=== PATIENT | male | born 1995 | race Caucasian/White ===

== ENCOUNTER 2016-12-04 11:27 | Emergency (ER) | payer OTHER ==
[~2016-12-04] VITALS: Ht 172.7 cm; Wt 86.2 kg
[2016-12-04 11:29] VITALS: BP 123/81
[2016-12-04] MEDS ORDERED: AMOX875T PO (11:53)
[2016-12-04] MEDS ORDERED: IBUP-1060 PO (11:53)
--- NOTE | 2016-12-04 12:13 | PHYS DOC ---
Past Medical History Past Medical History: No Pertinent History Past Surgical History: No Surgical History Alcohol Use: Occasionally Drug Use: None Adult General Chief Complaint Chief Complaint: EARACHE/EAR PAIN HPI HPI Patient is a 21 year old male who presents with 3 days of R ear pain, painful R neck lymph nodes. No fevers, no sore throat, no dental pain. Has not attempted any symptom controlling medication. Review of Systems Review of Systems Constitutional: Denies fever or chills [] Eyes: Denies change in visual acuity, redness, or eye pain [] HENT: Denies nasal congestion or sore throat [] Respiratory: Denies cough or shortness of breath [] Cardiovascular: denies chest pain GI: Denies abdominal pain, nausea, vomiting, bloody stools or diarrhea [] : Denies dysuria or hematuria [] Musculoskeletal: Denies back pain or joint pain [] Integument: Denies rash or skin lesions [] Neurologic: Denies headache, focal weakness or sensory changes [] Allergies Allergies Allergies Coded Allergies Type Severity Reaction Last Updated Verified No Known Drug Allergies 04/14/16 No Physical Exam Physical Exam Constitutional: Well developed, well nourished, no acute distress, non-toxic appearance. [] HENT: Normocephalic, atraumatic, bilateral external ears normal, oropharynx moist, no oral exudates, nose normal. no trismus, R tm dulled with streaking and surrounding erythema, no mastoid tenderness. Eyes: PERRLA, EOMI, conjunctiva normal, no discharge. [] Neck: Normal range of motion, no tenderness, supple, no stridor. [] Cardiovascular:Heart rate regular rhythm, no murmur [] Lungs & Thorax: Bilateral breath sounds clear to auscultation, no wheeze, crackles or rhonchi Extremities: No tenderness, no cyanosis, no clubbing, ROM intact, no edema. [] Neurologic: Alert and oriented X 3, normal motor function, normal sensory function, no focal deficits noted. [] Psychologic: Affect normal, judgement normal, mood normal. [] Current Patient Data Vital Signs Vital Signs Date Time Temp Pulse Resp B/P (MAP) Pulse Ox O2 Delivery O2 Flow Rate FiO2 12/04/16 11:29 97.7 94 18 100 Room Air 97.7 EKG EKG [] Radiology/Procedures Radiology/Procedures [] Course & Med Decision Making Course & Med Decision Making Pertinent Labs and Imaging studies reviewed. (See chart for details) will treat with amoxicillin 875mg bid x 10 days, ibuprofen, f/u with Dr. Tor Ozuna Disclaimer Laith Disclaimer This electronic medical record was generated, in whole or in part, using a voice recognition dictation system. Departure Departure Impression: Primary Impression: Otitis media Disposition: HOME, SELF-CARE Condition: STABLE Referrals: JACKSON BARRETO MD Patient Instructions: Otitis Media, Adult, [id number] Additional Instructions: schedule follow-up with your doctor to ensure your symptoms are well controlled. Scripts Amoxicillin (AMOXICILLIN) 875 Mg Tablet 1 TAB PO BID, #20 TAB Prov: MARGOT DAVIS MD 12/04/16 Ibuprofen (IBUPROFEN) 800 Mg Tablet 800 MG PO PRN TID Y for PAIN, #20 TAB take with food or milk to avoid upsetting stomach Prov: MARGOT DAVIS MD 12/04/16 MARGOT DAVIS MD December 04, 2016 12:13
== END 2016-12-04 12:01 | disposition home or self-care (01) ==
LOC: ER 11:27
DX: H66.91 Otitis media, unspecified, right ear (principal)
CPT/HCPCS: 99283